=== PATIENT | male | born 1950 | race African-American/Black ===

== ENCOUNTER 2018-07-02 23:09 | Emergency (ER) | payer MEDICAID, OTHER ==
[~2018-07-02] VITALS: Ht 177.8 cm; Wt 83.0 kg
[2018-07-03] MEDS ORDERED: KETOROLAC 30MG/ML VIAL IM ONE (00:45)
[2018-07-03] MEDS ORDERED: MORPHINE SULFATE 4 MG/ML CPJ (NOT FOR IM USE) IV ONE (01:15)
[2018-07-03 03:15] VITALS: BP 129/82
== END 2018-07-03 08:33 | disposition home or self-care (01) ==
LOC: ER 07-03 08:06
DX: R33.9 Retention of urine, unspecified (principal)
CPT/HCPCS: 51702; 96372; 96374; 99284; J1885; J2270; X7700; A4315